=== PATIENT | female | born 1950 ===

== ENCOUNTER 2022-10-23 11:34 | Outpatient (CLI) | payer OTHER | END 2022-10-23 11:47 | disposition home or self-care (01) | LOC: SONOGRAMA 11:34 | PROVIDERS: ATTEND Obstetrics & Gynecology | DX: N95.9 Unspecified menopausal and perimenopausal disorder (principal) ==

== ENCOUNTER 2022-11-19 05:30 | Day surgery (SDC) | payer OTHER ==
[~2022-11-19] VITALS: Ht 162.6 cm; Wt 71.7 kg
[~2022-11-19 05:30] MED LIST: ADVAIR HFA 230/12 GM IH; AVAPRO300 MG PO; CARDIZEM30 MG PO; CRESTOR20 MG PO; FOLIC ACID0.8 M1 PO; HUMALOG100 UNIT/2; LANTUS SOL100 UNIT/1; PROVENTIL HFA6.7 GM IH; TAMBOCOR150 MG PO; TRICOR145 MG PO
== END 2022-11-19 13:30 | disposition home or self-care (01) ==
LOC: CIR.AMB 05:30
PROVIDERS: ATTEND Obstetrics & Gynecology
DX: N95.0 Postmenopausal bleeding (principal); Z91.041 Radiographic dye allergy status; Z20.822 Contact with and (suspected) exposure to COVID-19